=== PATIENT | female | born 1965 | race Caucasian/White ===

== ENCOUNTER 2024-07-21 15:15 | Day surgery (SDC) | payer OTHER ==
[2024-07-21] MEDS ORDERED: LIDOCAINE HCL 1% AMPUL 5 ML IJ ONE (15:16)
[2024-07-21] MEDS ORDERED: Depo-Medrol 40 MG/ML IM ONE (15:16)
[2024-07-21] MEDS ORDERED: BUPIVACAINE 0.5% VIAL IJ ONE (15:16)
--- NOTE | 2024-07-21 17:20 | XRAY ---
Indication: Bilateral SI joint injection. Intraoperative fluoroscopy provided for 31 seconds. 4 digital spot images submitted for interpretation demonstrates posterior needle tips projecting over left and right SI joints. Small amount of contrast injected for needle tip placement. Correlate with intraoperative findings/report.
--- NOTE | 2024-07-22 10:30 | XRAY ---
31 seconds of fluoroscopy was used in surgery for a bilateral sacroiliac joint injection.
== END 2024-07-21 17:10 | disposition home or self-care (01) ==
LOC: SDC-PAIN 15:15
PROVIDERS: ATTEND Psychiatry & Neurology Pain Medicine
DX: M46.1 Sacroiliitis, not elsewhere classified (principal)
CPT/HCPCS: 27096; 72202; 77002; Q9966; G0260